=== PATIENT | female | born 1950 | race Caucasian/White ===

== ENCOUNTER → 2021-02-07 | Outpatient (CLI) | payer MEDICARE ==
[2021-02-07 09:28] LABS: Basophils # (A) 0.1 k/uL (0-0.2); Basophils % (A) 1 %; Eosinophils # (A) 0.1 k/uL (0-0.7); Eosinophils % (A) 2 %; HCT 38.2 % (34.0-46.0); HGB 13.2 gm/dL (11.4-16.0); Lymphocytes # (A) 1.2 k/uL (1.0-4.8); Lymphocytes % (A) 23 %; MCH 33.6 pg (25.0-35.0); MCHC 34.5 g/dL (31.0-37.0); MCV 97.4 fL (80.0-100.0); Mean Platelet Volume 8.1; Monocytes # (A) 0.3 k/uL (0-1.0); Monocytes % (A) 6 %; Neutrophils # (A) 3.4 k/uL (1.3-7.7); Neutrophils % (A) 66 %; Platelet Count 227 k/uL (150-450); RBC 3.92 m/uL (3.80-5.40); RDW 12.6 % (11.5-15.5); WBC 5.2 k/uL (3.8-10.6)
[2021-02-07 09:29] LABS: Potassium 4.4 mmol/L (3.5-5.1)
[2021-02-07 09:30] LABS: Calcium 9.5 mg/dL (8.4-10.2); Magnesium 1.9 mg/dL (1.6-2.3)
[2021-02-07 10:08] LABS: Appearance,Urine Clear (Clear); Bilirubin,Urine Negative (Negative); Blood,Urine Negative (Negative); Color,Urine Light Yellow; Glucose,Urine (UA) Negative (Negative); Ketones,Urine Negative (Negative); Leukocyte Esterase,Urine Negative (Negative); Nitrite,Urine Negative (Negative); Protein,Urine Negative (Negative); Urobilinogen,Urine <2.0 mg/dL (<2.0)
== END | disposition home or self-care (01) ==
LOC: LABPAT 08:25
PROVIDERS: ATTEND Urology
DX: Z01.818 Encounter for other preprocedural examination (principal); N39.3 Stress incontinence (female) (male); N81.11 Cystocele, midline; I10 Essential (primary) hypertension
CPT/HCPCS: 36415; 80048; 81003; 83735; 85025; 86850; 86900; 86901; 87077; 87086; 87186; 93005

== ENCOUNTER 2021-02-17 07:34 | Day surgery (SDC) | payer MEDICARE ==
[2021-02-10 11:28] VITALS: BMI 21.0
--- NOTE | 2021-02-11 14:02 | HP ---
HISTORY AND PHYSICAL History and physical for surgery on 02/17/2021. This is a 70-year-old female who presented with increasing pressure and bulge of the perineal body. The patient saw Dr. Burns and a sling procedure for incontinence was recommended. She is menopausal, not taking hormone replacement therapy. She is not currently sexually active. My examination is consistent with a grade 3-4 cystocele, and therefore concomitant cystocele repair is recommended. PAST MEDICAL HISTORY: Significant for hypertension and bladder prolapse in the past. PAST SURGICAL HISTORY: Hysterectomy in 1998 with ovaries in situ, tonsillectomy in 1954, bunion surgery 2019. CURRENT MEDICATIONS: 1. Losartan 50 mg daily. 2. Metoprolol succinate 50 mg extended tabs once daily. 3. Premarin 0.3 mg orally daily. ALLERGIES: None known. FAMILY HISTORY: Significant for asthma and hypertension. REPRODUCTIVE HISTORY: Normal spontaneous vaginal deliveries x2. SOCIAL HISTORY: Patient works for [employer]. She drinks social alcohol, coffee daily, has never been a smoker, and is . PHYSICAL EXAMINATION: On examination, patient is 5 feet, 1.5 inches, 115 pounds, 98% O2 saturation on room air, blood pressure 112/78, pulse is 60. HEENT examination reveals good dentition, no thyromegaly, no cervical lymphadenopathy. Chest is clear to auscultation in all perdomo anteriorly and posteriorly. Breasts are bilaterally symmetric to inspection with no skin dimpling, nipple discharge, axillary adenopathy, or discernible lesions or masses. Cardiac exam reveals regular rate and rhythm with no murmur, click, or rub. Abdomen is soft, scaphoid, no organosplenomegaly, active bowel sounds. Extremities reveal no edema, good range of motion, normal reflexes and no edema. Neurologically, the patient is intact, oriented x3, with good discernment and understanding and proper affect. On pelvic examination, there is a grade 3-4 cystocele noted, more prominent with Valsalva. Bladder is nontender. External genitalia within normal limits. Adnexa negative to palpation, small and mobile bilaterally. Rectal exam with good tone, no hemorrhoids, no masses. IMPRESSION: Midline cystocele, increasingly symptomatic, with complaint of urinary incontinence. PLAN: I agree that a cystocele repair will be appropriate to be performed in conjunction with Dr. Burns's surgery. The risks of bleeding, infection, perforation or damage to bowel, bladder, ureters have all been reviewed. The risks of anesthesia, aspiration, nerve damage, or even have again all been discussed. All questions answered. We will proceed with surgery at [facility] on 02/17/2021. MMMAURAL / NELYSN: [id number] /
[~2021-02-17 07:34] MED LIST: LACTATED RINGERS 1,000 ML IV SCH; LIDOCAINE 1% (10MG/ML) FOR IV START INTRADERMA PRN; fentaNYL (PF) 50 MCG/ML 2 ML AMP IV PRN
[2021-02-17] MEDS ORDERED: ONDANSETRON 4 MG/2 ML VIAL ONE (08:15)
[2021-02-17] MEDS ORDERED: ONDANSETRON 4 MG/2 ML VIAL IVP ONE (08:17)
[2021-02-17] MEDS ORDERED: DEXAMETHASONE SOD PHOSPHATE 4 MG/ML 1 ML VIAL IVP ONE (08:17)
[2021-02-17] MEDS ORDERED: MIDAZOLAM 2 MG/2 ML VIAL IVP ONE (09:13)
[2021-02-17] MEDS ORDERED: fentaNYL (PF) 50 MCG/ML 2 ML AMP IVP ONE (09:23)
--- NOTE | 2021-02-17 09:24 | P.ANPRN ---
Procedure Note - Anesthesia - Epidural/Spinal Spinal Time Out Performed: Yes Date of Procedure: 02/17/21 Procedure Start Time: : Procedure Stop Time: Location of Patient: PreOp Indication: Acute Post-Operative Pain (Dr Madrigal) Sedation Type: Sedate with meaningful contact maintained Preparation: Sterile Prep Position: Sitting Catheter: None Needle Guage: 25 Injectate: Other (Duramorph 300mcg, fentanyl 25mcg) Blood Aspirated: No Pain Paresthesia on Injection Noted: No Events: Uneventful and Well Tolerated
[2021-02-17] MEDS ORDERED: LIDOCAINE 1% INJ 10MG/ML (20 ML MDV) ONE (09:26)
[2021-02-17] MEDS ORDERED: PROPOFOL 10 MG/ML 20 ML VIAL IV ONE (09:26)
[2021-02-17] MEDS ORDERED: MORPHINE SULFATE (PF) 0.3 MG/0.3 ML SYR ONE (09:26)
[2021-02-17] MEDS ORDERED: fentaNYL (PF) 50 MCG/ML 2 ML AMP ONE (09:26)
[2021-02-17] MEDS ORDERED: VASOPRESSIN 20 UNIT/ML 1 ML VIAL SQ ONE (09:49)
[2021-02-17] MEDS ORDERED: GENTAMICIN 80 MG in SODIUM CHLORIDE 0.9% 500 ML 500 ML IRRIGATION ONE (10:08)
[2021-02-17] MEDS ORDERED: BACITRACIN ZINC 500 UNIT/GM OINT 28.4 GM TUBE TOPICAL ONE ×2 (10:13→10:46)
[2021-02-17] MEDS ORDERED: hydrALAZINE HCL 20 MG/ML 1 ML VIAL IVP ONE (10:47)
[2021-02-17] MEDS ORDERED: LACTATED RINGERS 1,000 ML IV ONE ×2 (11:30)
[2021-02-17] MEDS ORDERED: KETOROLAC 15 MG/ML 1 ML VIAL IVP PRN (11:32)
[2021-02-17] MEDS ORDERED: SIMETHICONE 80 MG CHEWABLE PO PRN (11:32)
[2021-02-17] MEDS ORDERED: diphenhydrAMINE 50 MG/ML 1 ML VIAL IVP PRN ×2 (11:32→12:15)
[2021-02-17] MEDS ORDERED: ONDANSETRON 4 MG/2 ML VIAL IVP PRN (11:32)
[2021-02-17] MEDS ORDERED: METOCLOPRAMIDE 5 MG/ML 2 ML VIAL IVP PRN (11:32)
--- NOTE | 2021-02-17 11:32 | P.OP ---
Date of Procedure: 02/17/21 Preoperative Diagnosis: Symptomatic grade 3 cystocele, genuine stress urinary incontinence Postoperative Diagnosis: Same Procedure(s) Performed: Anterior colporrhaphy Anesthesia: GETA Surgeon: Ute Madrigal (\) Professional Model #1: Loren Marie Estimated Blood Loss (ml): 50 IV fluids (ml): 400 Urine output (ml): 200 Pathology: none sent Condition: stable Disposition: PACU Description of Procedure: Patient is brought to the operating suite where general anesthetic is administered without difficulty after a spinal with Duramorph is placed in the preoperative area. The appropriate timeout was performed to assure proper patient and procedural identification. The perineal body and vaginal vault are all prepped and draped in the usual sterile fashion. A weighted speculum was placed into the vagina and the uterosacral cardinal ligaments are identified and grasped with Allis clamps. A in the incision is made between each uterosacral cardinal ligament with a scalpel. Metzenbaum scissors are then used in the midline after the tissue is thoroughly injected with a dilute Pitressin solution. Metzenbaum scissors are used to open the anterior vaginal mucosa to within 1.5 cm inferior to the urethra. The edges of the mucosa are held with Allis clamps. A sponge rolled finger is used to sweep the underlying fascial bed from the overlying mucosa. Leggett catheter is then replaced. 2-0 Vicryl is used in an interrupted fashion to bring the fascial edges together thereby completely reducing the cystocele. When this is completed Metzenbaum scissors are used to trim the redundant mucosa. At this time Dr. Dela Cruz is seated and performed his sling procedure, please see separate dictation. After the cystoscopy is noted to be negative I again and seated at the perineal body. 2-0 Vicryl sutures used in a running fashion to close the anterior vaginal mucosa. Leggett is noted to be draining clear urine. All sponge needle and enhancement counts are correct. Vagina is packed with one-inch iodophor gauze with basic tracing. Patient is brought back to the recovery room in excellent condition with stable vital signs including blood pressure 102/53, pulse 50, 99% O2 saturation. Please note that antibiotics were given preoperatively as per hospital protocol.
[2021-02-17] MEDS ORDERED: MORPHINE SULFATE 2 MG/ML SYRINGE IVP PRN (12:15)
[2021-02-17] MEDS ORDERED: NALOXONE 0.4 MG/ML 1 ML VIAL IV PRN (12:15)
--- NOTE | 2021-02-17 12:26 | P.OP ---
Date of Procedure: 02/17/21 Preoperative Diagnosis: stress urinary incontinence Postoperative Diagnosis: Same Procedure(s) Performed: Cystoscopy, transobturator sling Implants: Obtyrux Halo sling Anesthesia: BECKIA Surgeon: Jamel Burns Estimated Blood Loss (ml): 5 Pathology: none sent Condition: stable Disposition: PACU Indications for Procedure: This is 70-year-old female with history of stress urinary incontinence, and a cystocele. Discussed with her the option of Kegel exercises versus surgical intervention. She agreed to proceed with cystocele repair, and a trans- obturator sling. Of note she underwent a urodynamic and cystoscopy which was only significant for stress urinary incontinence. Discussed with her the option of doing a trans-obturator sling, discussed that we would be using mesh for this procedure. Discussed with her the risk which includes but not limited to bleeding, infection, mesh erosion to the bladder, the urethra, and the vagina. Discussed the risk of persistent urinary incontinence after sling placement. Discussed the potential of urinary retention. She understood all the risk and agreed to proceed Operative Findings: uncomplicated trans-obturator sling Description of Procedure: The patient was taken to the operating room and placed in the dorsal lithotomy position. Initially the cystocele dissection was performed by Dr. Malik, please see her operative note for that portion of the dictation. [id number] Leggett catheter was placed. The scalpel was used to make bilateral groin incisions at the level of the clitoris. Subcutaneous tissues were spread with a hemostat. Each of the helical needles were passed through the respective groin incision, and turned such that the needle tip wrapped around the pubis. The needle tips were guided digitally into the vaginal incision. The Obtryx graft, which had been previously soaked in antibiotic solution, was secured to the needle tips in the standard fashion. The needles were then withdrawn, and the position of the graft was adjusted such that it overlie the mid urethra, as desired. With a hemostat placed between the graft and the urethra to prevent tension of the graft over the urethra, the plastic sheath was removed from the ends of the graft. The ends of the graft were cut beneath the skin incisions, and these incisions were closed using 4-0 Vicryl suture in a subcuticular fashion. Cystoscopy was performed. The 30 lens was used to introduce the 19-Tajik Storz cystoscopic sheath through the urethra and into the bladder under direct vision. The urethra and bladder were unremarkable. There was no evidence of perforation. Both ureteral orifices were of normal anatomic location and configuration, and clear urine effluxed from both. No tumors or foreign bodies were seen. The cystoscope was removed, and the Leggett catheter was replaced into the bladder. At this time Dr. malik, completed the cystocele repair, please see her portion of the dictation.
[2021-02-17 12:51] VITALS: RESP 16
--- NOTE | 2021-02-18 07:24 | P.PN ---
Progress Note - Text Progress Note Date: 02/18/21 Patient doing well. Ambulating without paresthesia or weakness. Denies headache. Pain controlled. POD#1 s/p cystocele repair with spinal duramorph - continue multimodal pain control
--- NOTE | 2021-02-18 07:33 | P.PN ---
Subjective Progress Note Date: 02/18/21 The patient is in her first postoperative day from a cystocele repair and trans- obturator tape. She is feeling well. She is not having pain. The Leggett catheter and packing of been removed. If she voids well she'll be discharged home. She'll follow-up in the office with Dr. Burns in 1 week. Postoperative instructions been given. Objective - Vital Signs Vital signs: Vital Signs Temp 97.8 F 02/17/21 23:29 Pulse 68 02/17/21 23:29 Resp 16 02/18/21 06:00 BP 128/72 02/17/21 23:29 Pulse Ox 98 02/18/21 06:00 Intake & Output 02/17/21 02/18/21 02/18/21 18:59 06:59 18:59 Intake Total 1251 1000 Output Total 800 1500 Balance 451 -500 Weight 53.3 kg Intake: IV 1251 Intake, IV Titration 1000 Amount Lactated Ringers 1,000 ml 1000 @ 0 mls/hr IV .[facility] Rx#:[id number] Output: Urine 750 1500 Uretheral (Leggett) 100 1500 Estimated Blood Loss 50
[2021-02-18 07:46] VITALS: BP 145/83; PULSE 79; TEMP 98
--- NOTE | 2021-02-18 08:59 | P.DS ---
Providers Date of admission: 02/17/21 Expected date of discharge: 02/18/21 Attending physician: Ute Madrigal Primary care physician: [facility] Hospital Course: This is a 70-year-old female who presented with symptomatic cystocele and ge nuine urinary stress incontinence. She was evaluated by both myself and Dr. Dela Cruz. The decision was made to proceed with cystocele repair and sling procedure. Please see dictated history and physical for details. Yesterday the patient underwent a cystocele repair and sling procedure. She did well intraoperatively, Leggett catheter placed, cystoscopy negative, vaginal packing also placed. Please see dictated operative note for details. This morning the patient is doing well. Leggett catheter has been removed as well as the vaginal packing. She has minimal pain. Scant vaginal drainage. Vital signs are stable and she is afebrile. She has voided spontaneously approximately 175 mL with a residual over 100 mL, to be repeated in several hours. Otherwise, patient is judged to be in very good condition for discharge home. She will follow-up with me in the office in 2 weeks, in 1 week with urologist. She will use [id number] Advil or Aleve, or Motrin as needed for pain. She'll call with any fevers shakes or chills, foul smelling or bloody vaginal drainage. With any pain not alleviated by [id number] products. She will maintain her preoperative blood pressure medicine as written. She is reminded no heavy lifting, intercourse, tampons or douching. Assessment: Doing well postoperative day #1 Patient Condition at Discharge: Good Plan - Discharge Summary Discharge Rx Participant: No New Discharge Prescriptions: No Action Estrogens, Conjugated [Premarin] 0.3 mg PO DAILY metroNIDAZOLE 1% GEL [Metrogel 1%] 1 applic TOPICAL DAILY Metoprolol Succinate (ER) [Toprol Xl] 50 mg PO DAILY Losartan [Cozaar] 50 mg PO DAILY Discharge Medication List Estrogens, Conjugated [Premarin] 0.3 mg PO DAILY 06/15/16 [History] metroNIDAZOLE 1% GEL [Metrogel 1%] 1 applic TOPICAL DAILY 06/17/16 [History] Losartan [Cozaar] 50 mg PO DAILY 02/10/21 [History] Metoprolol Succinate (ER) [Toprol Xl] 50 mg PO DAILY 02/10/21 [History] Follow up Appointment(s)/Referral(s): Jamel Burns MD [STAFF PHYSICIAN] - 1 Week
--- NOTE | 2021-02-21 07:37 | CDI ---
Outpatient Documentation Clarification Form Date: 02/21/21 CDS/Turkey Cleaner Name: Nina Pickering Phone: If any questions, call Irina Dugan Corporate Sales Manager at [phone] Patient Name: Bridget Zayas Admit Date: 02/17/21 Discharge Date: 02/17/21 ATTENTION: The [facility] Coding Staff appreciate your assistance in clarifying documentation. Please respond to the clarification below the line at the bottom and electronically sign. The [facility] Coding staff will review the response and follow-up if needed. Please note: Queries are made part of the Legal Health Record. If you have any questions, please contact the Corporate Sales Manager. Dear Dr. Pierre, Please provide clarification as to the location of the spinal injection for post-operative pain management. Specificity is needed to determine medical necessity. Paravertebral nerve Facet Joint Paraspinal interfascial plane Other - please specify Thank you for your kind consideration. MTDD
--- NOTE | 2021-03-03 15:53 | CDI ---
Outpatient Documentation Clarification Form Date: 03/03/21 CDS/Leadership Intern Name: Nina Pickering Phone: If any questions, call Irina Dugan Music Director at [phone] Patient Name: Bridget Zayas Admit Date: 02/17/21 Discharge Date: 02/18/21 ATTENTION: The [facility] Coding Staff appreciate your assistance in clarifying documentation. Please respond to the clarification below the line at the bottom and electronically sign. The [facility] Coding staff will review the response and follow-up if needed. Please note: Queries are made part of the Legal Health Record. If you have any questions, please contact the Music Director. Dear Dr. Pierre, Please provide some clarification as to the type of spinal anesthesia was given for acute post-operative pain maintenance. Was it one of the below: Paraveterbral Trigger Point Spinal Tendon Other - please clarify Thank you for your kind consideration. MTDD
== END 2021-02-18 11:40 | disposition home or self-care (01) ==
LOC: OR 07:34 → 4FBP 10:57 → OR 02-18 11:40
PROVIDERS: ATTEND Obstetrics & Gynecology
DX: N81.11 Cystocele, midline (principal); N39.3 Stress incontinence (female) (male); Z79.890 Hormone replacement therapy; Z79.899 Other long term (current) drug therapy; I10 Essential (primary) hypertension; Z90.710 Acquired absence of both cervix and uterus; Z90.89 Acquired absence of other organs; Z98.890 Other specified postprocedural states; Z82.5 Family history of asthma and other chronic lower respiratory diseases; Z82.49 Family history of ischemic heart disease and other diseases of the circulatory system
CPT/HCPCS: 57240; 51992; 62322; C1771; J2250; J0360; J1580; J1100; J0690; J2405; J2001; J2274; J3010; J2704; 86850; 86900; 86901

== ENCOUNTER 2023-05-21 09:21 | Day surgery (SDC) | payer MEDICARE ==
[2023-05-19 08:55] VITALS: BMI 20.7
[~2023-05-21 09:21] MED LIST changes: -fentaNYL (PF) 50 MCG/ML 2 ML AMP IV PRN
[2023-05-21 09:52] VITALS: TEMP 98.4
[2023-05-21] MEDS ORDERED: PROPOFOL 10 MG/ML 20 ML VIAL IV ONE (10:21)
--- NOTE | 2023-05-21 10:44 | P.PCN ---
Date of Procedure: 05/21/23 Procedure(s) Performed: BRIEF HISTORY: Patient is a 73-year-old pleasant white female scheduled for an elective colonoscopy as a part of screening for colon cancer. She has prior history of colon polyps and last colonoscopy was in 2016. PROCEDURE PERFORMED: Colonoscopy with biopsy. PREOPERATIVE DIAGNOSIS: Screening for colon cancer and history of colon polyps. IV sedation per Anesthesia. PROCEDURE: After informed consent was obtained, the patient, was brought into the endoscopy unit. IV sedation was administered by Anesthesia under continuous monitoring. Digital rectal examination was normal. Initially the Olympus CF-160 flexible video colonoscope was then inserted in the rectum, gradually advanced into the hepatic flexure was a moderate to severe difficulty. Despite multiple attempts and changing the patient's position I was not able to advance the scope any further. At this time the scope was removed and a pediatric colonoscopy was then introduced into the rectum and gradually advanced into the cecum with some difficulty.. Careful examination was performed as the scope was gradually being withdrawn. Ileocecal valve and the appendiceal orifice were visualized and appeared normal. Prep was excellent. Mucosa of the cecum, appeared normal. Ascending colon there was a 3-4 mm flat polyp removed by cold biopsy. Rest of the ascending colon, transverse colon, descending colon, sigmoid colon, and rectum appeared normal. Scattered sigmoid diverticulosis. Retroflexion was performed in the rectum and no lesions were seen. The patient tolerated the procedure well. IMPRESSION: 3 mm flat ascending colon polyp status post cold biopsy Scattered sigmoid diverticulosis. RECOMMENDATIONS: Findings of this examination were discussed with the patient as well as a family. She was advised to follow with the biopsy results. If the biopsy reveals adenoma she can have a repeat colonoscopy in 5 years..
[2023-05-21 11:23] VITALS: BP 160/89; PULSE 78; RESP 18
== END 2023-05-21 11:25 | disposition home or self-care (01) ==
LOC: ORWHC2ENDO 09:21
PROVIDERS: ATTEND Internal Medicine Gastroenterology
DX: Z12.11 Encounter for screening for malignant neoplasm of colon (principal); K63.5 Polyp of colon; I10 Essential (primary) hypertension; K57.30 Diverticulosis of large intestine without perforation or abscess without bleeding; Z86.010 Personal history of colon polyps; Z79.899 Other long term (current) drug therapy
CPT/HCPCS: 88305; 45380; J2704